=== PATIENT | female | born 1985 | race Caucasian/White ===

== ENCOUNTER 2016-04-13 18:05 | Emergency (ER) | payer OTHER ==
[2016-04-13] MEDS ORDERED: AUGMENTIN 875 MG TAB As Ordered ONE (20:13)
--- NOTE | 2016-04-13 20:31 | EDDOCDS ---
Physician Documentation [facility] Name: Shaista Stewart Age: 30 yrs Sex: Female : 1985 Arrival Date: 04/13/2016 Time: 18:05 Bed Triage 3 Private MD: No Pcp Disposition: 04/13/16 20:22 Discharged to Home/Self Care. Impression: Acute sinusitis. - Condition is Stable. - Discharge Instructions: Sinus Headache, Sinusitis, Adult. - Prescriptions for Augmentin 875- 125 mg Oral Tablet - take 1 tablet by ORAL route every 12 hours for 10 days; 20 tablet. Ibuprofen 800 mg Oral Tablet - take 1 tablet by ORAL route every 8 hours As needed take with food; 30 tablet. Fluticasone 50 mcg/actuation Nasal [place], Suspension - inhale 2 spray by INTRANASAL route once daily; 1 bottle. - Medication Reconciliation, Local Pharmacy Hours form. - [facility] up[facility]; When: Call to arrange an appointment; Reason: Recheck today's complaints, Continuance of care. - Problem is new. - Symptoms are unchanged. Historical: - Allergies: no known allergies; - Home Meds: 1. none - PMHx: none; - PSHx: Tubal ligation; Knee surgery- Left; - Social history: Smoking status: Patient uses tobacco products, current every day smoker. No barriers to communication noted, The patient speaks fluent Turkish, Speaks appropriately for age. - Family history: Not pertinent. - : The pt / caregiver states he / she is not on anticoagulants. Home medication list is obtained from the patient. - Exposure Risk Screening:: None identified. 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 6 in. (167.64 cm); Pain 7/10; 20:26 BP 138 / 76; Pulse 68; Resp 16; Temp 97.2; Pulse Ox 97% on R/A; Pain 5/10; jrd 18:09 Body Mass Index 24.86 (69.85 kg, 167.64 cm) sew MDM: 20:12 Amoxicillin-Clavulanate 875 mg 1 tabs PO once ordered. mo1 20:12 Ibuprofen 800 mg PO once ordered. mo1 20:30 [facility] Payment Agreement was scanned into [employer] and attached to record. brianne 20:30 Financial registration complete. brianne Administered Medications: 20:18 Drug: Amoxicillin-Clavulanate 1 tabs [amoxicillin 875 mg-potassium clavulanate 125 mg nn1 tablet (1 tabs)] Route: PO; 20:18 Drug: Ibuprofen 800 mg [ibuprofen 800 mg tablet (1 tabs)] Route: PO; nn1 Signatures: Katharine BullRN RN ck1 Slade Lima PA PA lorena1 Nataliya PalmerRN RN Claudia Mane Nikkole RN nn1 The chart was reviewed and I authenticate all verbal orders and agree with the evaluation and treatment provided.Attachments: 20:30 [facility] Payment Agreement gjdimas MTDD
--- NOTE | 2016-04-13 20:31 | EDDOCDS ---
Nurse's Notes [facility] Name: Shaista Stewart Age: 30 yrs Sex: Female : 1985 Arrival Date: 04/13/2016 Time: 18:05 Bed Triage 3 Private MD: Aleah Pcp Diagnosis: Acute sinusitis Presentation: 04/13 18:21 Presenting complaint: Patient states: pt c/o headache, bilateral ear pain, jaw pain, ead and pain with swallowing. onset of symptoms three days ago. This patient has no additional risk factors. Adult Sepsis Screening: The patient does not have new or worsening altered mentation. Patient's respiratory rate is less than 22. Systolic blood pressure is less than or equal to 100 (1 point). Patient has a qSOFA score of 0- Negative Sepsis Screen. Suicide/Homicide risk assessment- the patient denies having any suicidal and/or homicidal ideations and does not present with any other emotional, behavioral or mental health complaints. Status: Patient is not a environmental services lead or dependent. Transition of care: patient was not received from another setting of care. 18:21 Acuity: YEMI Level 3 ead 18:21 Method Of Arrival: Walkin/Carried/Asstd ead Triage Assessment: 18:22 Headache History: This patient has a history of headaches and the character of this ead headache is like all previous headaches. General: Appears in no apparent distress, Behavior is appropriate for age, cooperative. Pain: Pain currently is 6 out of 10 on a pain scale. At worst was 10 out of 10 on a pain scale. Pain began 2-3 days ago Also complains of no other associated symptoms. HIV screening NA for this visit Offered previously. Neurological: Level of Consciousness is awake, alert, Oriented to person, place, time. EENT: Reports pain in right ear, left ear, right jaw and left jaw. Derm: Skin is pink, warm & dry. 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 none - PMHx: none; - PSHx: Tubal ligation; Knee surgery- Left; - Social history: Smoking status: Patient uses tobacco products, current every day smoker. No barriers to communication noted, The patient speaks fluent Cook Islander, Speaks appropriately for age. - Family history: Not pertinent. - : The pt / caregiver states he / she is not on anticoagulants. Home medication list is obtained from the patient. - Exposure Risk Screening:: None identified. Screenin:20 Screening information is obtained from prior medical records. Fall risk: No risks nn1 identified. Assistance ADL's: requires no assistance with activities of daily living. Abuse/DV Screen: The patient / caregiver reports he/she is: not in a situation that causes fear, pain or injury. Nutritional screening: No deficits noted. Advance Directives: Currently, there is no health care proxy. home support is adequate. Assessment: 20:18 General: Appears in no apparent distress, comfortable, Behavior is appropriate for age, nn1 cooperative. 20:19 Pain: Location: left jaw and right jaw and left ear and right ear Pain currently is 6 nn1 out of 10 on a pain scale. Quality of pain is described as pressure, Pain began 2-3 days ago. Neurological: Level of Consciousness is awake, alert, obeys commands. Respiratory: Airway is patent Respiratory effort is even, unlabored, Respiratory pattern is regular, Breath sounds are clear bilaterally. Derm: Skin is pink, warm & dry. 20:29 General: Appears in no apparent distress, comfortable, Behavior is appropriate for age, ck1 cooperative. Pain: Location: face Pain currently is 6 out of 10 on a pain scale. Neurological: Level of Consciousness is awake, alert, obeys commands. Respiratory: Respiratory effort is unlabored, Respiratory pattern is regular, symmetrical. Derm: Skin is pink, warm & dry. Vital Signs: 18:09 BP 136 / 80; Pulse 86; Resp 16; Temp 97.4(O); Pulse Ox 99% on R/A; Weight 69.85 kg; sew Height 5 ft. 6 in. (167.64 cm); Pain 7/10; 20:26 BP 138 / 76; Pulse 68; Resp 16; Temp 97.2; Pulse Ox 97% on R/A; Pain 5/10; jrd 18:09 Body Mass Index 24.86 (69.85 kg, 167.64 cm) [facility] Vitals: 18:09 Log In Time: April 13, 2016 at 18:00. [facility] ED Course: 18:08 Patient visited by Marilee Medrano. sew 18:08 Patient moved to Waiting [facility] 18:09 No Pcp is Private Physician. sew 18:10 Patient visited by Marilee Medrano. sew 18:10 Patient moved to Pre RCE sew 18:22 Triage Initiated ead 19:40 Patient moved to Triage 3 ck1 19:42 Patient visited by Katharine Bull,VERONICA. ck1 19:58 Slade Lima PA is PHCP. mo1 19:58 Jesse Cortez DO is Attending Physician. mo1 20:07 Patient visited by Slade Lima PA. mo1 20:22 [facility] is Referral Physician. mo1 20:26 Patient visited by Gerardo Cesar PCA. jrd 20:29 The patient / caregiver is instructed regarding the plan of care and ED course. ck1 20:29 No IV's were initiated during this patient's visit. No procedures done that require ck1 assistance. 20:30 [facility] Payment Agreement was scanned into [employer] and attached to record. gjb Administered Medications: 20:18 Drug: Amoxicillin-Clavulanate 1 tabs [amoxicillin 875 mg-potassium clavulanate 125 mg nn1 tablet (1 tabs)] Route: PO; 20:18 Drug: Ibuprofen 800 mg [ibuprofen 800 mg tablet (1 tabs)] Route: PO; nn1 Order Results: There are currently no results for this order. Outcome: 20:22 Discharge ordered by Provider. mo1 20:28 Discharge Assessment: Patient awake, alert and oriented x 3. No cognitive and/or ck1 functional deficits noted. Patient verbalized understanding of disposition instructions. patient administered narcotics - no. The following High Risk Discharge criteria are identified: None. Discharged to home ambulatory, with family. Condition: stable. Discharge instructions given to patient, Instructed on discharge instructions, follow up and referral plans. medication usage, Demonstrated understanding of instructions, medications, Pt was receptive of discharge instructions/ teaching. Prescriptions given X 3. No special radiology studies were completed. Property :Personal belongings accompany Pt. 20:30 Patient left the ED. ck1 Signatures: Katharine Bull,RN RN ck1 Marilee Medrano Michael, PA PA mo1 Nataliya Palmer RN RN ead Donoghue, Joseph, PCA PROOFREADER Gem Flores RN RN nn1 Ospina, Claudia gjb MTDD
--- NOTE | 2016-04-15 21:31 | EDDOCDS ---
Physician Documentation [facility] Name: Shaista Stewart Age: 30 yrs Sex: Female : 1985 Arrival Date: 04/13/2016 Time: 18:05 Bed Triage 3 Private MD: No Pcp Disposition: 04/13/16 20:22 Discharged to Home/Self Care. Impression: Acute sinusitis. - Condition is Stable. - Discharge Instructions: Sinus Headache, Sinusitis, Adult. - Prescriptions for Augmentin 875- 125 mg Oral Tablet - take 1 tablet by ORAL route every 12 hours for 10 days; 20 tablet. Ibuprofen 800 mg Oral Tablet - take 1 tablet by ORAL route every 8 hours As needed take with food; 30 tablet. Fluticasone 50 mcg/actuation Nasal [place], Suspension - inhale 2 spray by INTRANASAL route once daily; 1 bottle. - Medication Reconciliation, Local Pharmacy Hours form. - Follow up: [facility]; When: Call to arrange an appointment; Reason: Recheck today's complaints, Continuance of care. - Problem is new. - Symptoms are unchanged. Historical: - Allergies: no known allergies; - Home Meds: 1. none - PMHx: none; - PSHx: Tubal ligation; Knee surgery- Left; - Social history: Smoking status: Patient uses tobacco products, current every day smoker. No barriers to communication noted, The patient speaks fluent Arabic, Speaks appropriately for age. - Family history: Not pertinent. - : The pt / caregiver states he / she is not on anticoagulants. Home medication list is obtained from the patient. - Exposure Risk Screening:: None identified. 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 6 in. (167.64 cm); Pain 7/10; 20:26 BP 138 / 76; Pulse 68; Resp 16; Temp 97.2; Pulse Ox 97% on R/A; Pain 5/10; jrd 18:09 Body Mass Index 24.86 (69.85 kg, 167.64 cm) sew MDM: 20:12 Amoxicillin-Clavulanate 875 mg 1 tabs PO once ordered. mo1 20:12 Ibuprofen 800 mg PO once ordered. mo1 20:30 [facility] Payment Agreement was scanned into [employer] and attached to record. [facility] : Financial registration complete. [facility] 04/14 11:09 T-Sheet-- Draft Copy was scanned into [employer] and attached to record. gb Administered Medications: 04/13 20:18 Drug: Amoxicillin-Clavulanate 1 tabs [amoxicillin 875 mg-potassium clavulanate 125 mg nn1 tablet (1 tabs)] Route: PO; 20:18 Drug: Ibuprofen 800 mg [ibuprofen 800 mg tablet (1 tabs)] Route: PO; nn1 Signatures: Anastasia Merino, Reg Reg gb Katharine BullRN RN ck1 Slade Lima PA PA mo1 Nataliya Palmer RN RN Claudia Mane [facility] Gem Adrian RN nn1 The chart was reviewed and I authenticate all verbal orders and agree with the evaluation and treatment provided.Attachments: 20:30 [facility] Payment Agreement [facility] 04/14 11:09 T-Sheet-- Draft Copy gb Chart Complete MTDD
--- NOTE | 2016-04-15 21:31 | EDDOCDS ---
Physician Documentation [facility] Name: Shaista Stewart Age: 30 yrs Sex: Female : 1985 Arrival Date: 04/13/2016 Time: 18:05 Bed Triage 3 Private MD: No Pcp Disposition: 04/13/16 20:22 Discharged to Home/Self Care. Impression: Acute sinusitis. - Condition is Stable. - Discharge Instructions: Sinus Headache, Sinusitis, Adult. - Prescriptions for Augmentin 875- 125 mg Oral Tablet - take 1 tablet by ORAL route every 12 hours for 10 days; 20 tablet. Ibuprofen 800 mg Oral Tablet - take 1 tablet by ORAL route every 8 hours As needed take with food; 30 tablet. Fluticasone 50 mcg/actuation Nasal [place], Suspension - inhale 2 spray by INTRANASAL route once daily; 1 bottle. - Medication Reconciliation, Local Pharmacy Hours form. - Follow up: [facility]; When: Call to arrange an appointment; Reason: Recheck today's complaints, Continuance of care. - Problem is new. - Symptoms are unchanged. Historical: - Allergies: no known allergies; - Home Meds: 1. none - PMHx: none; - PSHx: Tubal ligation; Knee surgery- Left; - Social history: Smoking status: Patient uses tobacco products, current every day smoker. No barriers to communication noted, The patient speaks fluent Yakut, Speaks appropriately for age. - Family history: Not pertinent. - : The pt / caregiver states he / she is not on anticoagulants. Home medication list is obtained from the patient. - Exposure Risk Screening:: None identified. 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 6 in. (167.64 cm); Pain 7/10; 20:26 BP 138 / 76; Pulse 68; Resp 16; Temp 97.2; Pulse Ox 97% on R/A; Pain 5/10; jrd 18:09 Body Mass Index 24.86 (69.85 kg, 167.64 cm) sew MDM: 20:12 Amoxicillin-Clavulanate 875 mg 1 tabs PO once ordered. mo1 20:12 Ibuprofen 800 mg PO once ordered. mo1 20:30 [facility] Payment Agreement was scanned into [employer] and attached to record. [facility] : Financial registration complete. [facility] 04/14 11:09 T-Sheet-- Draft Copy was scanned into [employer] and attached to record. gb Administered Medications: 04/13 20:18 Drug: Amoxicillin-Clavulanate 1 tabs [amoxicillin 875 mg-potassium clavulanate 125 mg nn1 tablet (1 tabs)] Route: PO; 20:18 Drug: Ibuprofen 800 mg [ibuprofen 800 mg tablet (1 tabs)] Route: PO; nn1 Signatures: Anastasia Merino, Reg Reg gb Katharine BullRN RN ck1 Slade Lima PA PA mo1 Nataliya Palmer RN RN Claudia Mane [facility] Gem Adrian RN nn1 The chart was reviewed and I authenticate all verbal orders and agree with the evaluation and treatment provided.Attachments: 20:30 [facility] Payment Agreement [facility] 04/14 11:09 T-Sheet-- Draft Copy gb Chart Complete MTDD
--- NOTE | 2016-04-15 21:31 | EDDOCDS ---
Nurse's Notes [facility] Name: Shaista Stewart Age: 30 yrs Sex: Female : 1985 Arrival Date: 04/13/2016 Time: 18:05 Bed Triage 3 Private MD: Aleah Pcp Diagnosis: Acute sinusitis Presentation: 04/13 18:21 Presenting complaint: Patient states: pt c/o headache, bilateral ear pain, jaw pain, ead and pain with swallowing. onset of symptoms three days ago. This patient has no additional risk factors. Adult Sepsis Screening: The patient does not have new or worsening altered mentation. Patient's respiratory rate is less than 22. Systolic blood pressure is less than or equal to 100 (1 point). Patient has a qSOFA score of 0- Negative Sepsis Screen. Suicide/Homicide risk assessment- the patient denies having any suicidal and/or homicidal ideations and does not present with any other emotional, behavioral or mental health complaints. Status: Patient is not a career services assistant or dependent. Transition of care: patient was not received from another setting of care. 18:21 Acuity: YEMI Level 3 ead 18:21 Method Of Arrival: Walkin/Carried/Asstd ead Triage Assessment: 18:22 Headache History: This patient has a history of headaches and the character of this ead headache is like all previous headaches. General: Appears in no apparent distress, Behavior is appropriate for age, cooperative. Pain: Pain currently is 6 out of 10 on a pain scale. At worst was 10 out of 10 on a pain scale. Pain began 2-3 days ago Also complains of no other associated symptoms. HIV screening NA for this visit Offered previously. Neurological: Level of Consciousness is awake, alert, Oriented to person, place, time. EENT: Reports pain in right ear, left ear, right jaw and left jaw. Derm: Skin is pink, warm & dry. 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 none - PMHx: none; - PSHx: Tubal ligation; Knee surgery- Left; - Social history: Smoking status: Patient uses tobacco products, current every day smoker. No barriers to communication noted, The patient speaks fluent Northern Irish, Speaks appropriately for age. - Family history: Not pertinent. - : The pt / caregiver states he / she is not on anticoagulants. Home medication list is obtained from the patient. - Exposure Risk Screening:: None identified. Screenin:20 Screening information is obtained from prior medical records. Fall risk: No risks nn1 identified. Assistance ADL's: requires no assistance with activities of daily living. Abuse/DV Screen: The patient / caregiver reports he/she is: not in a situation that causes fear, pain or injury. Nutritional screening: No deficits noted. Advance Directives: Currently, there is no health care proxy. home support is adequate. Assessment: 20:18 General: Appears in no apparent distress, comfortable, Behavior is appropriate for age, nn1 cooperative. 20:19 Pain: Location: left jaw and right jaw and left ear and right ear Pain currently is 6 nn1 out of 10 on a pain scale. Quality of pain is described as pressure, Pain began 2-3 days ago. Neurological: Level of Consciousness is awake, alert, obeys commands. Respiratory: Airway is patent Respiratory effort is even, unlabored, Respiratory pattern is regular, Breath sounds are clear bilaterally. Derm: Skin is pink, warm & dry. 20:29 General: Appears in no apparent distress, comfortable, Behavior is appropriate for age, ck1 cooperative. Pain: Location: face Pain currently is 6 out of 10 on a pain scale. Neurological: Level of Consciousness is awake, alert, obeys commands. Respiratory: Respiratory effort is unlabored, Respiratory pattern is regular, symmetrical. Derm: Skin is pink, warm & dry. Vital Signs: 18:09 BP 136 / 80; Pulse 86; Resp 16; Temp 97.4(O); Pulse Ox 99% on R/A; Weight 69.85 kg; sew Height 5 ft. 6 in. (167.64 cm); Pain 7/10; 20:26 BP 138 / 76; Pulse 68; Resp 16; Temp 97.2; Pulse Ox 97% on R/A; Pain 5/10; jrd 18:09 Body Mass Index 24.86 (69.85 kg, 167.64 cm) [facility] Vitals: 18:09 Log In Time: April 13, 2016 at 18:00. [facility] ED Course: 18:08 Patient visited by Marilee Medrano. sew 18:08 Patient moved to Waiting [facility] 18:09 No Pcp is Private Physician. sew 18:10 Patient visited by Marilee Medrano. sew 18:10 Patient moved to Pre RCE sew 18:22 Triage Initiated ead 19:40 Patient moved to Triage 3 ck1 19:42 Patient visited by Katharine Bull RN. ck1 19:58 Slade Lima PA is PHCP. mo1 19:58 Jesse Cortez DO is Attending Physician. mo1 20:07 Patient visited by Slade Lima PA. mo1 20:22 [facility] is Referral Physician. mo1 20:26 Patient visited by Gerardo Cesar PCA. jrd 20:29 The patient / caregiver is instructed regarding the plan of care and ED course. ck1 20:29 No IV's were initiated during this patient's visit. No procedures done that require ck1 assistance. 20:30 [facility] Payment Agreement was scanned into [employer] ([employer]) and attached to record. gjb 04/14 11:09 T-Sheet-- Draft Copy was scanned into [employer] ([employer]) and attached to record. gb Administered Medications: 04/13 20:18 Drug: Amoxicillin-Clavulanate 1 tabs [amoxicillin 875 mg-potassium clavulanate 125 mg nn1 tablet (1 tabs)] Route: PO; 20:18 Drug: Ibuprofen 800 mg [ibuprofen 800 mg tablet (1 tabs)] Route: PO; nn1 Order Results: There are currently no results for this order. Outcome: 20:22 Discharge ordered by Provider. mo1 20:28 Discharge Assessment: Patient awake, alert and oriented x 3. No cognitive and/or ck1 functional deficits noted. Patient verbalized understanding of disposition instructions. patient administered narcotics - no. The following High Risk Discharge criteria are identified: None. Discharged to home ambulatory, with family. Condition: stable. Discharge instructions given to patient, Instructed on discharge instructions, follow up and referral plans. medication usage, Demonstrated understanding of instructions, medications, Pt was receptive of discharge instructions/ teaching. Prescriptions given X 3. No special radiology studies were completed. Property :Personal belongings accompany Pt. 20:30 Patient left the ED. ck1 Signatures: Anastasia Merino, Reg Reg gb Katharine Bull RN RN ck1 Marilee Medrano Michael, PA PA mo1 Nataliya Palmer,RN RN ead Gerardo Cesar, FIELD MARKETING ASSOCIATE FIELD MARKETING ASSOCIATE jrd Gem Adrian,RN RN nn1 Claudia Ospina Chart Complete MTDD
== END 2016-04-13 20:30 | disposition home or self-care (01) ==
LOC: M ED 18:05
DX: J01.90 Acute sinusitis, unspecified (principal); H92.03 Otalgia, bilateral; R51 Headache; F17.210 Nicotine dependence, cigarettes, uncomplicated

== ENCOUNTER 2016-09-15 02:31 | Emergency (ER) | payer OTHER ==
[~2016-09-15] VITALS: Ht 167.6 cm; Wt 77.0 kg
[2016-09-15] MEDS: MORPHINE 4 MG/ML 1ML SYRINGE IV PRN ×2 (03:57→04:43)
[2016-09-15] MEDS ORDERED: ONDANSETRON 4MG/2ML VIAL (J2405) IV ONE (04:00)
--- NOTE | 2016-09-15 04:29 | REP ---
Clinical: Trauma . Comparison: 03/27/2014 . Findings: The ventricles, sulci, and cisterns are normal in position and appearance. Anderson-white differentiation is maintained. No acute intracranial hemorrhage, mass/mass effect, pathology or trauma/injury. No evidence for acute infarction. No extra-axial fluid collection. Calvarium is intact. Paranasal sinuses and mastoid air cells are clear. Impression: Normal noncontrast head CT. No evidence for acute intracranial pathology or trauma/injury. Signed by Phani Stanley MD 09/15/2016 04:20 A
--- NOTE | 2016-09-15 04:31 | REP ---
Clinical: Trauma. Comparison: 01/01/2008 . Technique: Axial noncontrast images from the skull base to the thoracic inlet with coronal and sagittal re-formations Findings: Normal alignment and lordosis is maintained. Cervical vertebral bodies including transverse processes and spinous processes are intact and there is no evidence for acute fracture / compression injury or subluxation. Spinal canal is patent. Posterior elements are intact. Paravertebral soft tissues are normal. Impression: Normal noncontrast cervical spine CT. No evidence for acute pathology or trauma/injury. Signed by Phani Stanley MD 09/15/2016 04:22 A
--- NOTE | 2016-09-15 04:36 | REP ---
Clinical: Trauma. Technique: Axial noncontrast images from the thoracic inlet to the upper abdomen with coronal and sagittal re-formations. Findings: Bilateral lung doyle are essentially well-aerated, symmetric and without consolidation/contusion, pleural effusion or pneumothorax. Tracheobronchial tree is patent. The mediastinum demonstrates normal thoracic aorta, pulmonary vasculature and heart/pericardium. No evidence for adenopathy. No evidence for mediastinal or intrathoracic trauma. No obvious/displaced rib fracture. Thoracic vertebral bodies demonstrate normal alignment and without injury. Sternum appears intact. Impression: 1. No evidence for acute mediastinal or pleuroparenchymal pathology, trauma or injury. Signed by Phani Stanley MD 09/15/2016 04:27 A
[2016-09-15] MEDS ORDERED: OXYCODONE/APAP 5MG/325MG(BULK FOR ED) 1 TABLET PO ONE (06:30)
[2016-09-15] MEDS ORDERED: PERC5TAB12 PO (06:31)
[2016-09-15 06:44] VITALS: BP 124/72
--- NOTE | 2016-09-15 12:19 | ECGEPIP ---
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
== END 2016-09-15 06:45 | disposition home or self-care (01) ==
LOC: M ED 05:00
DX: F10.129 Alcohol abuse with intoxication, unspecified (principal); S20.219A Contusion of unspecified front wall of thorax, initial encounter; W17.89XA Other fall from one level to another, initial encounter; Y92.89 Other specified places as the place of occurrence of the external cause; Y93.44 Activity, trampolining; Y99.8 Other external cause status

== ENCOUNTER 2016-09-21 18:34 | Emergency (ER) | payer OTHER ==
[~2016-09-21] VITALS: Ht 167.6 cm; Wt 76.1 kg
[~2016-09-21 18:34] MED LIST: PERC5TAB12 PO
[2016-09-21 20:48] VITALS: BP 132/71
[2016-09-21] MEDS ORDERED: ROBA500T PO (21:10)
[2016-09-21] MEDS ORDERED: IBUP-1022 PO (21:10)
== END 2016-09-21 21:13 | disposition home or self-care (01) ==
LOC: M ED 18:34
DX: S39.011A Strain of muscle, fascia and tendon of abdomen, initial encounter (principal); X58.XXXS Exposure to other specified factors, sequela; Y92.018 Other place in single-family (private) house as the place of occurrence of the external cause; Y93.44 Activity, trampolining; Y99.8 Other external cause status; D68.59 Other primary thrombophilia; F17.210 Nicotine dependence, cigarettes, uncomplicated

== ENCOUNTER 2017-03-20 22:38 | Emergency (ER) | payer OTHER | END 2017-03-21 06:38 | disposition home or self-care (01) | LOC: M ED 22:38 | DX: S99.921A Unspecified injury of right foot, initial encounter (principal); X58.XXXA Exposure to other specified factors, initial encounter; Y92.89 Other specified places as the place of occurrence of the external cause; Y93.89 Activity, other specified; Y99.8 Other external cause status; D68.59 Other primary thrombophilia; F17.210 Nicotine dependence, cigarettes, uncomplicated | CPT/HCPCS: 73660 ==

== ENCOUNTER 2017-04-28 18:55 | Emergency (ER) | payer OTHER ==
[2017-04-28 21:16] LABS: CONTROL LINE UCG INT CTR LINE PRESENT; URINE PREG TEST NEGATIVE (NEGATIVE)
[2017-04-28 21:20] LABS: KETONE, URINE AUTO RFX NEGATIVE (NEGATIVE); LEUKOCYTE ESTERASE UR AUTO RFX NEGATIVE (NEGATIVE); MUCUS, URINE RFX SMALL (NEGATIVE); NITRITE, URINE AUTO RFX NEGATIVE (NEGATIVE); RBC, URINE AUTO RFX 4 /HPF (0-3); SPECIFIC GRAVITY UR AUTO RFX 1.021 (1.002-1.035); SQUAM EPITHELIAL CELL UR AURFX 4 /HPF (0-6); WBC, URINE AUTO RFX 3 /HPF (0-3)
[2017-04-28 21:46] LABS: BASO % 0.5 % (0.0-1.0); EOS # 0.1 10^3/uL (0.0-0.50); EOS % 1.5 % (0.0-3.0); HEMATOCRIT 38.7 % (36.0-47.0); HEMOGLOBIN 12.9 g/dl (12.0-16.0); IMMATURE GRANULOCYTE % 0.1 % (0-0); LYMPH # 2.6 10^3/uL (1.5-4.5); MEAN CORPUSCULAR HEMOGLOBIN 30.8 pg (27.0-33.0); MEAN CORPUSCULAR HGB CONC 33.3 g/dl (32.0-36.5); MEAN CORPUSCULAR VOLUME 92.4 fl (80.0-96.0); MONO # 0.7 10^3/uL (0.0-0.8); MONO % 8.9 % (0.0-5.0); PLATELET COUNT, AUTOMATED 215 10^3/uL (150-450); RED BLOOD COUNT 4.19 10^6/uL (4.00-5.40); RED CELL DISTRIBUTION WIDTH 11.8 % (11.5-14.5); WHITE BLOOD COUNT 7.3 10^3/uL (4.0-10.0)
[2017-04-28 22:03] LABS: ANION GAP 5 MEQ/L (8-16); BLOOD UREA NITROGEN 17 MG/DL (7-18); CALCIUM LEVEL 8.8 MG/DL (8.5-10.1); CARBON DIOXIDE LEVEL 29 MEQ/L (21-32); CHLORIDE LEVEL 107 MEQ/L (98-107); CREATININE FOR GFR 0.83 MG/DL (0.55-1.30); GLOMERULAR FILTRATION RATE > 60.0 (>60); GLUCOSE, FASTING 94 MG/DL (70-100); POTASSIUM SERUM 3.9 MEQ/L (3.5-5.1); SODIUM LEVEL 141 MEQ/L (136-145)
[2017-04-28 22:06] LABS: LACTIC ACID SEPSIS PROTOCOL 0.7 MMOL/L (0.4-2.0)
[2017-04-28 23:08] LABS: CHLAMYDIA DNA AMPLIFICATION NEGATIVE (NEGATIVE); GC DNA AMPLIFICATION NEGATIVE (NEGATIVE)
== END 2017-04-28 22:55 | disposition home or self-care (01) ==
LOC: M ED 18:55
DX: N76.0 Acute vaginitis (principal); T19.2XXA Foreign body in vulva and vagina, initial encounter; D68.59 Other primary thrombophilia; X58.XXXA Exposure to other specified factors, initial encounter; Y92.89 Other specified places as the place of occurrence of the external cause; F17.210 Nicotine dependence, cigarettes, uncomplicated; F12.20 Cannabis dependence, uncomplicated
CPT/HCPCS: 84703

== ENCOUNTER 2018-06-20 06:34 | Emergency (ER) | payer OTHER ==
[~2018-06-20] VITALS: Ht 167.6 cm; Wt 89.0 kg
[~2018-06-20 06:34] MED LIST changes: +CIPR-249 PO; +FLAG500T PO; +IBUP-1022 PO; +NAPR-837 PO; +ROBA500T PO
[2018-06-20] MEDS ORDERED: NS 1,000 ML IV ONE (07:15)
[2018-06-20] MEDS ORDERED: KETOROLAC 30 MG/ML VIAL (J1885) IV ONE (07:15)
[2018-06-20 07:35] LABS: BASO % 0.2 % (0.0-1.0); EOS # 0.1 10^3/uL (0.0-0.50); EOS % 0.8 % (0.0-3.0); HEMATOCRIT 40.6 % (36.0-47.0); HEMOGLOBIN 13.5 g/dl (12.0-15.5); LYMPH # 3.3 10^3/uL (1.5-4.5); LYMPH % 39.6 % (24.0-44.0); MEAN CORPUSCULAR HEMOGLOBIN 30.9 pg (27.0-33.0); MEAN CORPUSCULAR HGB CONC 33.3 g/dl (32.0-36.5); MEAN CORPUSCULAR VOLUME 92.9 fl (80.0-96.0); MONO # 0.7 10^3/uL (0.0-0.8); MONO % 7.8 % (0.0-5.0); NEUTROPHILS # 4.2 10^3/uL (1.8-7.7); NEUTROPHILS % 51.2 % (36.0-66.0); PLATELET COUNT, AUTOMATED 231 10^3/uL (150-450); RED BLOOD COUNT 4.37 10^6/uL (4.00-5.40); WHITE BLOOD COUNT 8.3 10^3/uL (4.0-10.0)
[2018-06-20 08:01] LABS: ALBUMIN 3.9 GM/DL (3.2-5.2); ALT/SGPT 18 U/L (12-78); AMYLASE 70 U/L (25-115); BILIRUBIN,DIRECT < 0.1 MG/DL (0.0-0.2); BILIRUBIN,TOTAL 0.2 MG/DL (0.2-1.0); BLOOD UREA NITROGEN 15 MG/DL (7-18); CALCIUM LEVEL 8.3 MG/DL (8.5-10.1); CARBON DIOXIDE LEVEL 22 MEQ/L (21-32); CHLORIDE LEVEL 111 MEQ/L (98-107); CREATININE FOR GFR 0.87 MG/DL (0.55-1.30); GLOMERULAR FILTRATION RATE > 60.0 (>60); GLUCOSE, FASTING 95 MG/DL (70-100); LIPASE 178 U/L (73-393); POTASSIUM SERUM 3.8 MEQ/L (3.5-5.1); SODIUM LEVEL 142 MEQ/L (136-145); TOTAL PROTEIN 7.5 GM/DL (6.4-8.2)
[2018-06-20 08:07] LABS: AMPHETAMINES LEVEL URINE NEGATIVE (NEGATIVE); BARBITURATES URINE NEGATIVE (NEGATIVE); BENZODIAZEPINES URINE NEGATIVE (NEGATIVE); CANNABINOIDS URINE POSITIVE (NEGATIVE); COCAINE METABOLITE URINE NEGATIVE (NEGATIVE); METHADONE URINE NEGATIVE (NEGATIVE); OPIATES URINE NEGATIVE (NEGATIVE); PHENCYCLIDINE URINE NEGATIVE (NEGATIVE)
--- NOTE | 2018-06-20 08:16 | REP ---
Chest x-ray: Two views. History: Right-sided back pain . Comparison study: July 25, 2015 . Findings: The lungs are well inflated and free of infiltrate. The pleural angles are sharp. The heart size is normal. Pulmonary vasculature is not increased. No significant bony abnormality is seen. Impression: Negative chest x-ray. Electronically Signed by Pj aGrcia MD 06/20/2018 08:08 A
--- NOTE | 2018-06-20 08:46 | REP ---
CT abdomen and pelvis without IV or oral contrast: History: Sudden onset right CVA pain. 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 The lung bases are clear on axial CT images. The liver and the spleen are normal in size and homogeneous in texture. No adrenal lesion is seen. The pancreas is unremarkable. No abnormalities noted in the gallbladder. No adrenal lesion is seen. The kidneys are morphologically intact. There is no evidence of hydronephrosis or intrarenal calculus on either side. No ureteral calculus or bladder calculus is seen. There is a phlebolith in the right pelvis. No uterine or ovarian abnormality is seen. Small and large intestinal bowel loops are normal in the abdomen and pelvis. A normal appendix is seen terminating in the midline in the superior pelvis. No abdominal wall defect is seen. Bone window settings show no significant bony abnormality. Impression: Negative CT abdomen and pelvis. No urinary tract calculus or hydronephrosis seen. No acute abdominal abnormality. Electronically Signed by Pj Garcia MD 06/20/2018 11:57 A
[2018-06-20] MEDS ORDERED: MACR100C43 PO (08:49)
[2018-06-20 09:12] VITALS: BP 123/67
== END 2018-06-20 09:26 | disposition home or self-care (01) ==
LOC: M ED 06:34
DX: N39.0 Urinary tract infection, site not specified (principal); M54.89 Other dorsalgia
CPT/HCPCS: 36415; 71046; 74176; 80048; 80076; 80307; 81001; 81025; 82150; 83690; 85025; 87088; 87186; 96374; 99284; G0480; J1885

== ENCOUNTER 2018-07-09 16:22 | Emergency (ER) | payer OTHER ==
[~2018-07-09] VITALS: Ht 167.6 cm; Wt 87.7 kg
[~2018-07-09 16:22] MED LIST changes: +MACR100C43 PO
[2018-07-09] MEDS ORDERED: ACET160S3 PO (16:27)
[2018-07-09] MEDS ORDERED: ZITHTAB PO (18:09)
[2018-07-09] MEDS ORDERED: CLAR5TAB7 PO (18:09)
[2018-07-09 18:12] VITALS: BP 111/56
== END 2018-07-09 18:21 | disposition home or self-care (01) ==
LOC: M ED 16:22
DX: J01.21 Acute recurrent ethmoidal sinusitis (principal); H74.8X3 Other specified disorders of middle ear and mastoid, bilateral

== ENCOUNTER 2021-01-25 01:29 | Emergency (ER) | payer OTHER ==
[~2021-01-25] VITALS: Ht 165.1 cm; Wt 81.8 kg
[~2021-01-25 01:29] MED LIST changes: +ACET160S3 PO; +CLAR5TAB7 PO; +ZITHTAB PO
--- OUTSIDE RECORDS SUMMARY | 2021-01-25 01:37 | CCD ---
Author Author [facility] Organization [facility] Address Unknown Phone Unavailable Care Team Providers Care Pot Puller Name Role Phone Ashlee Mg Unavailable Unavailable Re-disclosure Warning The records that you are about to access may contain information from federally-assisted alcohol or drug abuse programs. If such information is present, then the following federally mandated warning applies: This information has been disclosed to you from records protected by federal confidentiality rules (42 CFR part 2). The federal rules prohibit you from making any further disclosure of this information unless further disclosure is expressly permitted by the written consent of the person to whom it pertains or as otherwise permitted by 42 CFR part 2. A general authorization for the release of medical or other information is NOT sufficient for this purpose. The Federal rules restrict any use of the information to criminally investigate or prosecute any alcohol or drug abuse patient.The records that you are about to access may contain highly sensitive health information, the redisclosure of which is protected by Article 27-F of the [place] State Public Health law. If you continue you may have access to information: Regarding HIV / AIDS; Provided by facilities licensed or operated by the [facility] Office of Mental Health; or Provided by the [facility] Office for People With Developmental Disabilities. If such information is present, then the following [facility] mandated warning applies: This information has been disclosed to you from confidential records which are protected by state law. State law prohibits you from making any further disclosure of this information without the specific written consent of the person to whom it pertains, or as otherwise permitted by law. Any unauthorized further disclosure in violation of state law may result in a fine or fci sentence or both. A general authorization for the release of medical or other information is NOT sufficient authorization for further disc losure. Encounters Encounter Providers Location Date Indications Data Source(s ) Outpatient Attender: Ashlee CALLOWAY 01/16/2020 09:40:00 AM ED T [facility] Medications No Information Insurance Providers Payer name Policy type / Coverage type Policy ID Covered alliance party ID Covered alliance party's relationship to pelaez Policy Pelaez Plan Information [facility] [id number] SP [id number] [facility] [id number] SP [id number] Self Pay P UNAVAILABLE S UNAVAILA BLE [facility]) O [id number] S [id number] PROGRESSIVE CO NO FAULT [id number] SP [id number] PROGRESSIVE CO NO FAULT O [id number] S [id number] PROGRESSIVE CO NO FAULT [id number] SP [id number] D [facility] P [id number] S [id number] D [facility] Care [facility] P UNAVAILABLE S UNAVAILABLE D [facility] P [id number] S [id number] SELF PAY UNAVAILABLE SP UNAVAILA BLE MEDICAID [id number] SP [id number] [facility]) P [id number] S [id number] [employer] [id number] SP [id number] O BLUE [id number] SP [id number] HMO BLUE [id number] SP [id number] HMO BLUE [id number] SP [id number] [employer] P [id number] S [id number] [employer] P [id number] S [id number] Problems, Conditions, and Diagnoses No Information Surgeries/Procedures No Information Results ID Date Data Source [id number] 08/09/2020 12:00:00 AM EDT [facility] Name Value Range Interpretation Code Description Data Sherrie rce(s) Supporting Document(s) SARS-CoV2 Rapid Antigen Negative [facility] This lab [facility] and reported by [facility]. Procedure Social History No Information
[2021-01-25 02:33] LABS: BASO % 0.6 % (0.0-1.0); EOS # 0.1 10^3/uL (0.0-0.5); EOS % 1.6 % (0.0-3.0); HEMATOCRIT 37.7 % (36.0-47.0); HEMOGLOBIN 12.7 g/dl (12.0-15.5); LYMPH # 1.7 10^3/uL (1.5-5.0); LYMPH % 34.8 % (24.0-44.0); MEAN CORPUSCULAR HEMOGLOBIN 31.2 pg (27.0-33.0); MEAN CORPUSCULAR HGB CONC 33.7 g/dl (32.0-36.5); MEAN CORPUSCULAR VOLUME 92.6 fl (80.0-96.0); MONO # 0.5 10^3/uL (0.0-0.8); MONO % 9.2 % (2.0-8.0); NEUTROPHILS # 2.6 10^3/uL (1.5-8.5); NEUTROPHILS % 53.6 % (36.0-66.0); PLATELET COUNT, AUTOMATED 235 10^3/uL (150-450); RED BLOOD COUNT 4.07 10^6/uL (4.00-5.40); WHITE BLOOD COUNT 4.9 10^3/uL (4.0-10.0)
[2021-01-25 03:03] LABS: BLOOD UREA NITROGEN 14 MG/DL (7-18); CALCIUM LEVEL 8.6 MG/DL (8.5-10.1); CARBON DIOXIDE LEVEL 29 MEQ/L (21-32); CHLORIDE LEVEL 110 MEQ/L (98-107); CREATININE FOR GFR 0.94 MG/DL (0.55-1.30); GLOMERULAR FILTRATION RATE > 60.0 (>60); GLUCOSE, FASTING 106 MG/DL (70-100); POTASSIUM SERUM 4.2 MEQ/L (3.5-5.1); SODIUM LEVEL 141 MEQ/L (136-145)
--- OUTSIDE RECORDS SUMMARY | 2021-01-25 04:27 | CCD ---
Author Author [facility] Organization [facility] Address Unknown Phone Unavailable Care Team Providers Care Information Coder Name Role Phone Ashlee Mg Unavailable Unavailable [...] is protected by Article 27-F of the [place] State Public Health law. If you continue you may have access to information: Regarding HIV / AIDS; Provided by facilities licensed or operated by the [facility] Office of Mental Health; or Provided by the [facility] Office for People With Developmental Disabilities. If such information is present, then the following [facility] mandated warning applies: This information has [...] law may result in a fine or halfway sentence or both. A general authorization for the release of medical or other information is NOT sufficient authorization for further disc losure. Encounters Encounter Providers Location Date Indications Data Source(s ) Outpatient Attender: Ashlee CALLOWAY 01/16/2020 09:40:00 AM ED T [facility] Medications No Information Insurance Providers Payer name Policy type / Coverage type Policy ID Covered green party ID Covered green party's relationship to pelaez Policy Pelaez Plan Information [facility] [place] [facility] [id number] SP [id number] [facility] [place] [facility] [id number] SP [id number] Self Pay P UNAVAILABLE S UNAVAILA BLE [facility]([place]) O [id number] S [id number] PROGRESSIVE CO NO FAULT [id number] SP [id number] PROGRESSIVE CO NO FAULT O [id number] S [id number] PROGRESSIVE CO NO FAULT [id number] SP [id number] D [facility] P [id number] S [id number] D [facility] Care [facility] P UNAVAILABLE S UNAVAILABLE D [facility] P [id number] S [id number] SELF PAY UNAVAILABLE SP UNAVAILA BLE MEDICAID [id number] SP [id number] [facility]) P [id number] S [id number] [employer] [id number] SP [id number] O BLUE [id number] SP [id number] HMO BLUE [id number] SP [id number] HMO BLUE [id number] SP [id number] [employer] P [id number] S [id number] [employer] P [id number] S [id number] Problems, Conditions, and Diagnoses No Information Surgeries/Procedures No Information Results ID Date Data Source 307 08/09/2020 12:00:00 AM EDT [facility] Name Value Range Interpretation Code Description Data Sherrie rce(s) Supporting Document(s) SARS-CoV2 Rapid Antigen Negative [facility] and reported by [facility]. Procedure Social History No Information
[2021-01-25] MEDS ORDERED: NS 1,000 ML IV ONE (06:50)
[2021-01-25] MEDS ORDERED: KETOROLAC 30 MG/ML 1ML VIAL IV ONE (06:50)
[2021-01-25] MEDS ORDERED: MECLIZINE 25 MG TABLET PO ONE (06:50)
[2021-01-25] MEDS ORDERED: METOCLOPRAMIDE INJ 10MG/2ML VIAL (J2765 PER 1) IV ONE (06:50)
[2021-01-25 07:19] LABS: CK-MB VALUE MASS < 1.0 NG/ML (<3.6); CPK CREATINE PHOSPHOKINASE 171 U/L (26-192); MAGNESIUM LEVEL 1.6 MG/DL (1.8-2.4); MB/CK RELATIVE INDEX 0.58 (< OR =4); TROPONIN I < 0.02 NG/ML (< 0.10)
[2021-01-25 07:43] LABS: ERYTHROCYTE SEDIMENTATION RATE 5 mm/hr (0-20)
--- NOTE | 2021-01-25 07:48 | REPVR ---
PROCEDURE INFORMATION: Exam: CT Head Without Contrast Exam date and time: 01/25/2021 7:05 AM Age: 35 years old Clinical indication: Pain; Headache; Additional info: SHANKAR, lightheadedness TECHNIQUE: Imaging protocol: Computed tomography of the head without contrast. Radiation optimization: All CT scans at this facility use at least one of these dose optimization techniques: automated exposure control; mA and/or kV adjustment per patient size (includes targeted exams where dose is matched to clinical indication); or iterative reconstruction. COMPARISON: CT Head without contrast 09/15/2016 3:59 AM FINDINGS: Brain: Normal. No hemorrhage. Unremarkable white matter. No mass effect. Cerebral ventricles: No ventriculomegaly. Paranasal sinuses: Visualized sinuses are unremarkable. No fluid levels. Mastoid air cells: Visualized mastoid air cells are well aerated. Bones/joints: Unremarkable. No acute fracture. Soft tissues: Unremarkable. Other findings: There is mild bilateral peripheral increased attenuation. IMPRESSION: 1. No definite CT evidence of acute intracranial hemorrhage, mass effect or midline shift. 2. Mild bilateral peripheral cortical increased attenuation felt to be artifactual rather than pathologic. If there is high clinical suspicion of intracranial bleed follow-up CT scan may be considered. Electronically signed by: Ector Stallworth On 01/25/2021 07:47:50 AM
[2021-01-25 08:00] LABS: AMPHETAMINES LEVEL URINE NEGATIVE (NEGATIVE); BARBITURATES URINE NEGATIVE (NEGATIVE); BENZODIAZEPINES URINE NEGATIVE (NEGATIVE); CANNABINOIDS URINE POSITIVE (NEGATIVE); COCAINE METABOLITE URINE NEGATIVE (NEGATIVE); METHADONE URINE NEGATIVE (NEGATIVE); OPIATES URINE NEGATIVE (NEGATIVE); PHENCYCLIDINE URINE NEGATIVE (NEGATIVE)
[2021-01-25 08:08] LABS: INR 0.97; PARTIAL THROMBOPLASTIN TIME 30.1 SECONDS (25.9-37.0); PROTHROMBIN TIME 13.3 SECONDS (12.7-14.5)
[2021-01-25 08:16] VITALS: BP 130/81
[2021-01-25] MEDS ORDERED: ONDA4TAB6 PO (08:32)
[2021-01-25] MEDS ORDERED: MECL1TAB31 PO (08:32)
--- NOTE | 2021-01-25 08:32 | ECGEPIP ---
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
--- NOTE | 2021-01-25 16:51 | ED PDOC ---
Post-Departure Follow-Up radiology report faxed to Marilee Rosenthal MD Jan 25, 2021 16:51
== END 2021-01-25 08:52 | disposition home or self-care (01) ==
LOC: M ED 01:29
DX: R42 Dizziness and giddiness (principal); R20.2 Paresthesia of skin; D68.51 Activated protein C resistance; R00.1 Bradycardia, unspecified; F17.200 Nicotine dependence, unspecified, uncomplicated
CPT/HCPCS: 70450; 80048; 80307; 81001; 82550; 82553; 83735; 85025; 85610; 85652; 85730; 93005; 96361; 96374; 96375; 99285; J1885; J2765

== ENCOUNTER 2022-05-25 19:29 | Emergency (ER) | payer OTHER ==
[~2022-05-25] VITALS: Ht 165.1 cm; Wt 81.4 kg
[~2022-05-25 19:29] MED LIST changes: +MECL1TAB31 PO; +ONDA4TAB6 PO
[2022-05-25 23:19] VITALS: BP 139/76
== END 2022-05-25 23:20 | disposition home or self-care (01) ==
LOC: M ED 19:29
DX: S89.91XA Unspecified injury of right lower leg, initial encounter (principal); X50.0XXA Overexertion from strenuous movement or load, initial encounter; Y92.009 Unspecified place in unspecified non-institutional (private) residence as the place of occurrence of the external cause; D68.2 Hereditary deficiency of other clotting factors

== ENCOUNTER → 2022-08-03 | Outpatient (CLI) | payer OTHER | LOC: M WHC 08:09 | PROVIDERS: ATTEND Physician Assistant | DX: R59.0 Localized enlarged lymph nodes (principal) ==

== ENCOUNTER → 2022-08-22 | Outpatient (REF) | payer OTHER ==
[2022-08-22 18:06] LABS: BASO % 0.7 % (0.0-1.0); EOS # 0.1 10^3/uL (0.0-0.5); HEMATOCRIT 42.9 % (36.0-47.0); HEMOGLOBIN 14.1 g/dl (12.0-15.5); LYMPH # 2.4 10^3/uL (1.5-5.0); MEAN CORPUSCULAR HEMOGLOBIN 31.1 pg (27.0-33.0); MEAN CORPUSCULAR HGB CONC 32.9 g/dl (32.0-36.5); MEAN CORPUSCULAR VOLUME 94.7 fl (80.0-96.0); MONO # 0.6 10^3/uL (0.0-0.8); MONO % 9.6 % (2.0-8.0); NEUTROPHILS # 2.9 10^3/uL (1.5-8.5); NEUTROPHILS % 48.5 % (36.0-66.0); PLATELET COUNT, AUTOMATED 251 10^3/uL (150-450); RED BLOOD COUNT 4.53 10^6/uL (4.00-5.40); WHITE BLOOD COUNT 6.1 10^3/uL (4.0-10.0)
[2022-08-22 18:38] LABS: ALBUMIN 3.7 G/DL (3.2-5.2); ALKALINE PHOSPHATASE 53 U/L (46-116); ALT/SGPT 12 U/L (7.0-40); AST/SGOT 18 U/L (<34); BLOOD UREA NITROGEN 11 MG/DL (9-23); CALCIUM LEVEL 8.3 MG/DL (8.5-10.1); CARBON DIOXIDE LEVEL 27 MMOL/L (20-31); CHLORIDE LEVEL 105 MMOL/L (98-107); CHOLESTEROL LEVEL 134 MG/DL (<200); CHOLESTEROL RISK RATIO 2.82 (<5); CREATININE FOR GFR 0.93 MG/DL (0.55-1.30); GLOMERULAR FILTRATION RATE > 60.0 (>60); GLUCOSE, FASTING 88 MG/DL (60-100); HDL CHOLESTEROL 47.5 MG/DL (>40); LDL CHOLESTEROL 58.7 MG/DL (<100); NON-HDL-C 86.5 MG/DL; POTASSIUM SERUM 3.7 MMOL/L (3.5-5.1); SODIUM LEVEL 140 MMOL/L (136-145); TOTAL PROTEIN 6.3 G/DL (5.7-8.2); TRIGLYCERIDES LEVEL 139 MG/DL (<150)
[2022-08-22 19:04] LABS: HIV 1&2 SCREEN NEGATIVE (NEGATIVE)
[2022-08-22 19:11] LABS: HEPATITIS C VIRUS ABY INDEX 0.1 INDEX (<0.8)
== END ==
LOC: M LAB REF 17:07
PROVIDERS: ATTEND Physician Assistant
DX: R59.0 Localized enlarged lymph nodes (principal); Z83.3 Family history of diabetes mellitus; Z13.1 Encounter for screening for diabetes mellitus; Z11.4 Encounter for screening for human immunodeficiency virus [HIV]; Z11.59 Encounter for screening for other viral diseases